=== PATIENT | male | born 1955 | race Caucasian/White ===

== ENCOUNTER 2019-05-17 12:43 | Emergency (ER) | payer OTHER ==
[~2019-05-17] VITALS: Ht 170.2 cm; Wt 108.9 kg
[2019-05-17] MEDS ORDERED: IBERSALTAN (12:59)
== END 2019-05-17 19:16 | disposition home or self-care (01) ==
LOC: ER 12:43
DX: J45.901 Unspecified asthma with (acute) exacerbation (principal)

== ENCOUNTER 2020-06-12 09:41 | Emergency (ER) | payer OTHER ==
[~2020-06-12] VITALS: Ht 170.2 cm; Wt 108.9 kg
[~2020-06-12 09:41] MED LIST: IBERSALTAN
[2020-06-12] MEDS ORDERED: AVAPRO300 MG (10:05)
[2020-06-12] MEDS ORDERED: ALL DAY ALLERGY10 M3 (10:06)
[2020-06-12] MEDS ORDERED: SYMBICORT 16010.2 GM (10:06)
[2020-06-12] MEDS ORDERED: MONTELUKAST SODI4 M1 (10:06)
[2020-06-12] MEDS ORDERED: GLUCOTROL10 MG (10:06)
[2020-06-12] MEDS ORDERED: METFORMIN HCL1000 M2 (10:07)
[2020-06-12] MEDS ORDERED: TRICON CAPSULE1 EACH (10:07)
== END 2020-06-12 14:33 | disposition home or self-care (01) ==
LOC: ER 09:41
DX: J45.998 Other asthma (principal); I10 Essential (primary) hypertension; Z03.818 Encounter for observation for suspected exposure to other biological agents ruled out